=== PATIENT | female | born 2000 | race Two or more races ===

== ENCOUNTER 2020-05-22 01:08 | Inpatient (IN) ==
[2020-05-22 01:47] LABS: Bacteria,Urine Occasional /HPF (Few); Bilirubin,Urine Negative (Negative); Blood, Urine Small mg/dL (Negative); Glucose,Urine (UA) Negative (Negative); Ketones,Urine Negative (Negative); Mucus,Urine Occasional /LPF (Occasional); Nitrite,Urine Negative (Negative); Protein,Urine Negative; RBC,Urine 3 /HPF (0-4); Squamous Epithelial Cell,Urine Few /HPF (0-10); Urine Appearance Slightly Hazy (Clear); Urine Color Yellow (Yellow); Urine Specific Gravity 1.015 (1.001-1.035); WBC,Urine 4 /HPF (0-6)
[2020-05-22] MEDS ORDERED: MEPERIDINE 50 MG/1 ML VIAL IV PRN (02:03)
[2020-05-22] MEDS ORDERED: ONDANSETRON 4 MG/2 ML VIAL IV PRN ×2 (02:03→19:11)
[2020-05-22 02:23] LABS: Basophils % 0.1 % (0.0-0.8); Eosinophils % 0.4 % (0.00-10.9); Hematocrit 27.6 VOL% (35.7-47.0); Hemoglobin 9.3 GM/DL (12.0-16.0); Immature Granulocytes % 1.5 %; Immature Granulocytes Absolute 0.11 #; Lymphocytes # 1.9 10*3/uL (1.4-4.0); Lymphocytes % 24.6 % (21.3-54.2); Mean Corpuscular HGB Conc 33.7 GM/DL (32-36); Mean Corpuscular Volume 91.7 FL (87-102); Mean Platelet Volume 10.4 FL (9.6-12.0); Monocytes % 6.8 % (1.7-12.7); Neutrophils % 66.6 % (38.7-73.9); Platelet Count 167 T/CUMM (130-400); Red Blood Count 3.01 MC/CUMM (3.8-5.5); Red Cell Distribution Width 12.6 % (9.3-17.3); White Blood Count 7.5 T/CUMM (4-12)
[2020-05-22] MEDS ORDERED: AMPICILLIN INJ 2,000 MG in SODIUM CHLORIDE 0.9% 100 ML IV ONE (02:30)
[2020-05-22] MEDS ORDERED: LACTATED RINGERS 1,000 ML IV SCH (02:30)
[2020-05-22 02:41] LABS: Albumin 3.1 G/DL (3.4-5.0); Bilirubin,Total 0.4 MG/DL (0.2-1.0); Calcium 8.3 MG/DL (8.5-10.1); Osmolality,Calculated 273.5 MOS/KG (273-304); Potassium 3.8 MMOL/L (3.5-5.1); Total Protein 6.9 G/DL (6.4-8.2)
[2020-05-22 03:08] LABS: Hepatitis B Surface Ag Quant < 0.10 Index; Hepatitis B Surface Ag Result Non-Reactive (NonReactive)
[2020-05-22 03:19] LABS: HIV Antigen/Antibody Result Nonreactive (Nonreactive); Rubella Antibody IgG Result Reactive (NonReactive)
[2020-05-22 03:46] LABS: Eosinophils 2 % (0-10); Lymphocytes 28 % (20-55); Segmented Neutrophils 70 % (50-85); Total Cells Counted 100
[2020-05-22 03:47] LABS: Platelet Estimate Adequate
[2020-05-22] MEDS ORDERED: SODIUM CHLORIDE 0.9% 100 ML IV ONE (06:13)
[2020-05-22] MEDS ORDERED: AMPICILLIN 1,000 MG VIAL ONE (06:13)
[2020-05-22] MEDS ORDERED: AMPICILLIN INJ 1,000 MG in SODIUM CHLORIDE 0.9% 100 ML IV SCH (06:30)
[2020-05-22] MEDS ORDERED: hydrOXYzine HCL 25 MG/1 ML VIAL IM PRN (06:33)
[2020-05-22] MEDS ORDERED: PROMETHAZINE 25 MG/1 ML VIAL IM ONE (06:33)
[2020-05-22] MEDS ORDERED: diphenhydrAMINE 50 MG/1 ML VIAL IV PRN ×2 (06:33)
[2020-05-22] MEDS ORDERED: CITRIC ACID/SODIUM CITRATE 30 ML UDCUP PO ONE (06:33)
[2020-05-22] MEDS ORDERED: FAMOTIDINE 20 MG/2 ML VIAL IV ONE ×2 (06:33→06:38)
[2020-05-22] MEDS ORDERED: ePHEDrine 50 MG/ML VIAL IV PRN (06:33)
[2020-05-22] MEDS ORDERED: ONDANSETRON 4 MG/2 ML VIAL IV ONE (06:33)
[2020-05-22] MEDS ORDERED: LACTATED RINGERS 1,000 ML IV ONE (06:33)
[2020-05-22] MEDS ORDERED: NALOXONE 0.4 MG/ML VIAL IV PRN (06:33)
[2020-05-22] MEDS ORDERED: CITRIC ACID/SODIUM CITRATE 30 ML UDCUP ONE (06:37)
[2020-05-22] MEDS ORDERED: fentaNYL 2 MCG/ROPIV 0.2% EPID 100 ML EPIDURAL ONE (06:38)
[2020-05-22] MEDS ORDERED: ePHEDrine 50 MG/ML VIAL ONE (06:38)
[2020-05-22] MEDS ORDERED: fentaNYL 2 MCG/ROPIV 0.2% EPID 100 ML EPIDURAL SCH (07:00)
[2020-05-22] MEDS ORDERED: OXYTOCIN/LR 20 UNIT/1,000 ML BAG IV SCH (07:30)
[2020-05-22] MEDS ORDERED: METHYLERGONOVINE 0.2 MG/1 ML AMP ONE (09:09)
[2020-05-22 09:45] LABS: Cord Venous Blood HCO3 24.5 MMOL/L; Cord Venous Blood PCO2 42.2 MMHG; Cord Venous Blood PO2 47.1
[2020-05-22 10:26] LABS: Bacteria,Urine Occasional /HPF (Few); Bilirubin,Urine Negative (Negative); Blood, Urine Negative (Negative); Glucose,Urine (UA) Negative (Negative); Ketones,Urine Negative (Negative); Mucus,Urine Occasional /LPF (Occasional); Nitrite,Urine Negative (Negative); Protein,Urine Negative; RBC,Urine <1 /HPF (0-4); Urine Appearance CLEAR (Clear); Urine Color Yellow (Yellow); Urine Specific Gravity 1.011 (1.001-1.035); WBC,Urine <1 /HPF (0-6)
[2020-05-22] MEDS ORDERED: BISACODYL 10 MG SUPP RECTAL PRN (12:21)
[2020-05-22] MEDS ORDERED: BENZOCAINE 20%/MENTHOL 0.5% SPRAY 56 GM CAN TOP PRN (12:21)
[2020-05-22] MEDS ORDERED: LANOLIN 50% CREAM 0.3 OZ TUBE TOP PRN (12:21)
[2020-05-22] MEDS ORDERED: OXYTOCIN/LR 20 UNIT/1,000 ML BAG IV ONE (12:21)
[2020-05-22] MEDS ORDERED: DIPH/TET/ACEL PERT BOOSTER VACCINE 0.5 ML VIAL IM ONE (12:21)
[2020-05-22] MEDS ORDERED: RHO(D) IMMUNE GLOBULIN 300 MCG SYRINGE IM ONE (12:21)
[2020-05-22] MEDS ORDERED: HYDROCORTISONE 2.5% RECTAL CREAM 30 GM TUBE TOP PRN (12:21)
[2020-05-22] MEDS ORDERED: oxyCODONE/ACETAMINOPHEN 5-325 MG TABLET PO PRN (12:21)
[2020-05-22] MEDS ORDERED: ACETAMINOPHEN 325 MG TABLET PO PRN (12:21)
[2020-05-22] MEDS ORDERED: MEASLES/MUMPS/RUBELLA VACCINE 0.5 ML VIAL SUBCUT ONE (12:21)
[2020-05-22] MEDS ORDERED: WITCH HAZEL PADS 100/JAR TOP PRN (12:21)
[2020-05-22] MEDS: oxyCODONE/ACETAMINOPHEN 5-325 MG TABLET PO PRN (16:00)
[2020-05-22] MEDS: IBUPROFEN 800 MG TABLET PO PRN (21:07)
[2020-05-22] MEDS: DOCUSATE SODIUM 100 MG CAPSULE PO SCH (21:07)
[2020-05-23] MEDS: oxyCODONE/ACETAMINOPHEN 5-325 MG TABLET PO PRN (01:14)
[2020-05-23 06:37] LABS: Basophils % 0.4 % (0.0-0.8); Eosinophils # 0.1 10*3/uL (0.0-0.87); Eosinophils % 1.5 % (0.00-10.9); Hematocrit 26.4 VOL% (35.7-47.0); Hemoglobin 8.8 GM/DL (12.0-16.0); Immature Granulocytes % 1.3 %; Immature Granulocytes Absolute 0.11 #; Lymphocytes # 1.9 10*3/uL (1.4-4.0); Lymphocytes % 23.7 % (21.3-54.2); Mean Corpuscular HGB Conc 33.3 GM/DL (32-36); Mean Platelet Volume 10.8 FL (9.6-12.0); Monocytes % 5.9 % (1.7-12.7); Neutrophils % 67.2 % (38.7-73.9); Platelet Count 136 T/CUMM (130-400); Red Cell Distribution Width 12.8 % (9.3-17.3); White Blood Count 8.2 T/CUMM (4-12)
[2020-05-23] MEDS: FERROUS SULFATE 325 MG TABLET PO SCH (10:34)
[2020-05-23] MEDS: DOCUSATE SODIUM 100 MG CAPSULE PO SCH ×2 (10:34→20:12)
[2020-05-23] MEDS: IBUPROFEN 800 MG TABLET PO PRN (20:12)
[2020-05-24] MEDS: FERROUS SULFATE 325 MG TABLET PO SCH (08:18)
[2020-05-24] MEDS: DOCUSATE SODIUM 100 MG CAPSULE PO SCH (08:18)
[2020-05-24 13:43] VITALS: BP 120/69
== END 2020-05-24 10:55 | disposition home or self-care (01) | DRG 560 ==
LOC: N.LDOUT 01:08 → N.LD 01:11 → N.OB 12:20
PROVIDERS: ADMIT Obstetrics & Gynecology; ATTEND Obstetrics & Gynecology